=== PATIENT | female | born 1955 | race Hispanic/Latino ===

== ENCOUNTER 2021-02-28 20:27 | Inpatient (IN) | payer BC ==
[2021-02-28] MEDS ORDERED: Morphine 2 MG/ML VIAL SLOW IVP PRN (21:09)
[2021-02-28] MEDS ORDERED: Dextrose 5% in Water 1,000 ML IV PRN (21:09)
[2021-02-28] MEDS ORDERED: Ondansetron PF 4 MG/2 ML Vial IVP PRN (21:09)
[2021-02-28] MEDS ORDERED: hydrALAZINE 20 MG/ML VIAL SLOW IVP PRN (21:09)
[2021-02-28] MEDS ORDERED: Dextrose 50% Abboject 50 ML SYRINGE SLOW IVP PRN (21:09)
[2021-02-28] MEDS ORDERED: Promethazine HCl 25 MG/ML VIAL IM PRN (21:10)
[2021-02-28] MEDS ORDERED: Morphine 4 MG/ML VIAL SLOW IVP PRN (21:10)
[2021-02-28] MEDS ORDERED: Bisacodyl 10 MG SUPP PR PRN (21:10)
[2021-02-28] MEDS ORDERED: Ondansetron PF 4 MG/2 ML Vial IV PRN (21:10)
[2021-02-28] MEDS ORDERED: Fentanyl 100 MCG/2 ML VIAL SLOW IVP PRN (21:10)
[2021-02-28] MEDS ORDERED: Acetaminophen 325 MG TAB PO PRN (21:10)
[2021-02-28] MEDS ORDERED: HYDROcodone/Acetaminophen 5/325 mg Tablet PO PRN (21:10)
[2021-02-28] MEDS ORDERED: Cyclobenzaprine 10 MG TAB PO PRN (21:11)
[2021-02-28] MEDS ORDERED: traMADol HCl 50 MG TAB PO PRN (21:11)
[2021-02-28] MEDS ORDERED: SODIUM CHLORIDE 0.9% IVPB SCH (21:15)
[2021-02-28] MEDS ORDERED: GENTAMICIN IVPB SCH (21:15)
[2021-02-28] MEDS ORDERED: Communication Order-Pharmacy FS SCH (21:15)
[2021-02-28] MEDS ORDERED: Bacitracin Zinc Ointment 30 gm TUBE ONE (21:54)
[2021-02-28] MEDS ORDERED: Sodium Chloride 0.9% 30 ML ONE (21:54)
[2021-02-28] MEDS ORDERED: Bupivacaine 0.25% HCL 30 ML VIAL ONE (21:54)
[2021-02-28 21:59] LABS: #Basophils 0.1 thou/uL (0.0-0.2); #Lymphocytes 2.3 thou/uL (1.20-3.40); #Monocytes 0.9 thou/uL (0.11-0.59); #Neutrophils 6.3 thou/uL (1.40-6.50); %Basophils 0.9 % (0.0-1.0); %Eosinophils 0.4 % (0.0-10.0); %Lymphocytes 24.4 % (21.0-51.0); %Monocytes 8.9 % (0.0-10.0); %Neutrophils 65.5 % (42.0-75.0); Hemoglobin 13.1 g/dL (12.0-16.0); Mean Corpuscular HGB CONC 34.1 g/dL (32.0-36.0); Mean Corpuscular Hemoglobin 35.5 pg (27.0-31.0); Platelet Count 145 thou/uL (130-400); RBC Distribution Width 13.7 % (11.5-14.5); White Blood Cell (WBC) Count 9.5 thou/uL (4.8-10.8)
[2021-02-28 22:01] VITALS: BMI 24.3
[2021-02-28 22:18] LABS: SARS-CoV-2 NAA Rapid Test Not Detected (NotDetected)
[2021-02-28] MEDS ORDERED: Fentanyl 100 MCG/2 ML VIAL ONE (22:41)
[2021-02-28] MEDS ORDERED: Midazolam HCl 2 mg/2 ml Vial ONE (22:48)
[2021-02-28] MEDS ORDERED: Metoprolol Tartrate 5 MG/5 ML VIAL IVP SCH (23:45)
[2021-02-28] MEDS ORDERED: Sodium Chloride 0.9% 500 ML IV SCH (23:45)
[2021-02-28] MEDS ORDERED: Morphine 4 MG/ML VIAL ONE (23:49)
[2021-03-01] MEDS: Sodium Chloride 0.9% 1,000 ML IV SCH ×4 (01:07→16:57)
[2021-03-01] MEDS: Acetaminophen 325 MG TAB PO SCH ×5 (01:09→21:27)
[2021-03-01] MEDS: Ketorolac Tromethamine 30 MG/ML VIAL IVP SCH ×5 (01:10→21:12)
[2021-03-01 01:40] LABS: Lactic Acid 3.4 mmol/L (0.5-2.2)
[2021-03-01 01:43] LABS: ALT (SGPT) 21 U/L (8-55); AST (SGOT) 66 U/L (5-34); Albumin 2.7 g/dL (3.4-4.8); Alkaline Phosphatase 208 U/L (40-110); Anion Gap 14 mmol/L (10-20); BUN (Urea Nitrogen) 4 mg/dL (9.8-20.1); Bilirubin, Total 1.9 mg/dL (0.2-1.2); Calc. Creatinine Clearance 106 mL/min (70-130); Calcium 7.7 mg/dL (7.8-10.44); Carbon Dioxide 20 mmol/L (23-31); Chloride 108 mmol/L (98-107); Globulin 4.4 g/dL (2.4-3.5); Glucose 113 mg/dL (80-115); Potassium 3.6 mmol/L (3.5-5.1); Protein, Total 7.1 g/dL (5.8-8.1); Sodium 138 mmol/L (136-145)
[2021-03-01 01:47] LABS: Troponin I Less than 0.010 ng/mL (< 0.028)
[2021-03-01] MEDS ORDERED: Gentamicin Sulfate 80 MG in Premix Bag 1 BAG IVPB SCH (03:00)
[2021-03-01] MEDS ORDERED: Sodium Chloride 0.9% 500 ML IV SCH (04:15)
[2021-03-01 05:10] LABS: INR-International Normal Ratio 1.4; Prothrombin Time 16.8 sec (12.0-14.7)
[2021-03-01 05:11] LABS: PTT 38.5 sec (22.9-36.1)
[2021-03-01 05:26] LABS: #Basophils 0.1 thou/uL (0.0-0.2); #Eosinphils 0.1 thou/uL (0.0-0.7); #Lymphocytes 1.9 thou/uL (1.20-3.40); #Monocytes 0.9 thou/uL (0.11-0.59); #Neutrophils 6.7 thou/uL (1.40-6.50); %Basophils 0.5 % (0.0-1.0); %Eosinophils 0.8 % (0.0-10.0); %Lymphocytes 19.4 % (21.0-51.0); %Monocytes 9.4 % (0.0-10.0); %Neutrophils 69.8 % (42.0-75.0); Anion Gap 13 mmol/L (10-20); BUN (Urea Nitrogen) 4 mg/dL (9.8-20.1); Calc. Creatinine Clearance 111 mL/min (70-130); Calcium 7.6 mg/dL (7.8-10.44); Carbon Dioxide 21 mmol/L (23-31); Chloride 106 mmol/L (98-107); Glucose 116 mg/dL (80-115); Hemoglobin 12.7 g/dL (12.0-16.0); Mean Corpuscular HGB CONC 31.7 g/dL (32.0-36.0); Mean Corpuscular Hemoglobin 33.4 pg (27.0-31.0); Mean Platelet Volume 8.7 fL (7.4-10.4); Platelet Count 135 thou/uL (130-400); Potassium 3.5 mmol/L (3.5-5.1); RBC Distribution Width 13.8 % (11.5-14.5); Red Blood Cell (RBC) Count 3.79 mill/uL (4.20-5.40); Sodium 136 mmol/L (136-145); White Blood Cell (WBC) Count 9.6 thou/uL (4.8-10.8)
[2021-03-01] MEDS: Piperacillin/Tazobactam 4.5 GM in Sodium Chloride 0.9% 100 ML IVPB SCH ×3 (05:57→21:28)
[2021-03-01] MEDS ORDERED: Piperacillin/Tazobactam 4.5 GM in Sodium Chloride 0.9% 100 ML IVPB SCH (06:00)
[2021-03-01 06:33] LABS: Bilirubin Negative (Negative); Blood, Urine Negative (Negative); Clarity Clear (Clear); Glucose, Urine (Dipstick) Normal (Negative); Ketone, Urine Trace mg/dL (Negative); Leukocyte 500 Leu/uL (Negative); Nitrite Negative (Negative); Protein, Urine (Dipstick) Negative (Neg-Trace); RBC/HPF 0-3 HPF (0-3); Specific Gravity, Urine 1.018 (1.002-1.036); Squamous Epithelial 0-3 HPF (0-3); Urobilinogen Normal mg/dL (Less than 2); WBC/HPF Greater than 50 HPF (0-3); pH, Urine 6.5 (5.0-9.0)
[2021-03-01 06:37] LABS: Bacteria/HPF 1+ HPF (None Seen)
[2021-03-01 06:38] LABS: Urine Culture Reflex Yes Yes
[2021-03-01] MEDS ORDERED: Senokot S 8.6-50 MG TAB PO PRN (08:09)
[2021-03-01] MEDS ORDERED: Cepastat Lozenges 1 LOZ PO PRN (08:09)
[2021-03-01] MEDS ORDERED: Sodium Chloride 0.65% Nasal 44 ML BOT EA NARE PRN (08:09)
[2021-03-01] MEDS ORDERED: Ondansetron ODT 4 MG TAB PO PRN (08:09)
[2021-03-01] MEDS ORDERED: Bisacodyl 5 MG TAB PO PRN (08:09)
[2021-03-01] MEDS ORDERED: Calcium Carbonate 500 MG ChewTAB PO PRN (08:09)
[2021-03-01] MEDS ORDERED: Loratadine 10 MG TAB PO PRN (08:09)
[2021-03-01] MEDS ORDERED: GUAIFENESIN SF SOLN 200 MG/10 ML UDCUP PO PRN (08:09)
[2021-03-01] MEDS ORDERED: Ondansetron PF 4 MG/2 ML Vial IVP PRN (08:09)
[2021-03-01] MEDS ORDERED: Zolpidem Tartrate 5 MG TAB PO PRN (08:09)
[2021-03-01] MEDS ORDERED: Loperamide HCl 2 MG CAP PO PRN (08:09)
[2021-03-01 08:39] LABS: Phosphorus 2.9 mg/dL (2.3-4.7)
[2021-03-01] MEDS ORDERED: TETANUS AND DIPHTHERIA TOX/PF 0.5 ML DISP.SYRIN IM SCH (09:00)
[2021-03-01] MEDS ORDERED: Famotidine 20 MG TAB PO SCH (09:00)
[2021-03-01] MEDS ORDERED: Polyethylene Glycol 3350 17 GM Packet PO SCH (09:00)
[2021-03-01] MEDS ORDERED: Sodium Chloride 0.9% 10 ML ONE (11:43)
[2021-03-01] MEDS ORDERED: Bacitracin Zinc Ointment 30 gm TUBE ONE (11:43)
[2021-03-01] MEDS ORDERED: Bupivacaine PF 0.5% 30 ML VIAL ONE (11:43)
[2021-03-01] MEDS ORDERED: Fentanyl 100 MCG/2 ML VIAL ONE ×2 (11:54→14:31)
[2021-03-01] MEDS ORDERED: Ropivacaine 0.5% HCl/PF (150 MG/30 ML VIAL) ONE (12:15)
[2021-03-01] MEDS: Gabapentin 300 MG CAP PO SCH ×3 (12:46→21:26)
[2021-03-01] MEDS: Aspirin 81 mg Enteric Coated Tablet PO SCH ×2 (12:46→21:26)
[2021-03-01] MEDS ORDERED: Esmolol 100 MG/10 ML VIAL ONE (13:03)
[2021-03-01] MEDS ORDERED: Ketorolac Tromethamine 30 MG/ML VIAL ONE (13:03)
[2021-03-01] MEDS ORDERED: Labetalol HCl 100 MG/20 ML VIAL ONE (13:03)
[2021-03-01] MEDS ORDERED: Sodium Chloride 0.9% 30 ML ONE (13:07)
[2021-03-01] MEDS ORDERED: Multivitamins, Adult 10 ML, Thiamine HCl 100 MG, Folic Acid 1 MG in Dextrose 5 %-0.45 %... IV SCH (15:45)
[2021-03-01] MEDS ORDERED: Ondansetron HCl/PF 4 MG/2 ML Vial IVP PRN (16:21)
[2021-03-01] MEDS ORDERED: Promethazine HCl 25 MG/ML VIAL IM PRN (16:21)
[2021-03-01] MEDS ORDERED: Promethazine HCl 25 MG/ML VIAL IVPB PRN (16:21)
[2021-03-01] MEDS ORDERED: Clindamycin/D5W 600 MG in Premix Bag 1 BAG IVPB SCH (18:45)
[2021-03-01] MEDS: Metoprolol Tartrate 25 MG TAB PO SCH (21:26)
[2021-03-01] MEDS ORDERED: Ibuprofen 600 MG TAB PO PRN (22:00)
[2021-03-02] MEDS: Sodium Chloride 0.9% 1,000 ML IV SCH ×2 (01:41→11:50)
[2021-03-02] MEDS: Clindamycin/D5W 600 MG in Premix Bag 1 BAG IVPB SCH ×2 (02:17→11:12)
[2021-03-02] MEDS ORDERED: Ibuprofen 600 MG TAB PO PRN (04:00)
[2021-03-02] MEDS: Piperacillin/Tazobactam 4.5 GM in Sodium Chloride 0.9% 100 ML IVPB SCH ×3 (05:21→21:25)
[2021-03-02] MEDS: Acetaminophen 325 MG TAB PO SCH ×4 (05:25→23:18)
[2021-03-02 05:39] LABS: #Eosinphils 0.4 thou/uL (0.0-0.7); #Lymphocytes 1.6 thou/uL (1.20-3.40); #Monocytes 0.6 thou/uL (0.11-0.59); #Neutrophils 4.2 thou/uL (1.40-6.50); %Basophils 0.6 % (0.0-1.0); %Eosinophils 5.8 % (0.0-10.0); %Lymphocytes 23.2 % (21.0-51.0); %Monocytes 8.8 % (0.0-10.0); %Neutrophils 61.7 % (42.0-75.0); Hemoglobin 11.2 g/dL (12.0-16.0); Mean Corpuscular HGB CONC 32.2 g/dL (32.0-36.0); Mean Corpuscular Hemoglobin 34.3 pg (27.0-31.0); Mean Platelet Volume 8.6 fL (7.4-10.4); Platelet Count 111 thou/uL (130-400); RBC Distribution Width 13.8 % (11.5-14.5); Red Blood Cell (RBC) Count 3.26 mill/uL (4.20-5.40); White Blood Cell (WBC) Count 6.7 thou/uL (4.8-10.8)
[2021-03-02 05:40] LABS: Platelet Morphology Comment Appears Decreased
[2021-03-02 05:46] LABS: ALT (SGPT) 17 U/L (8-55); AST (SGOT) 54 U/L (5-34); Albumin 2.2 g/dL (3.4-4.8); Alkaline Phosphatase 181 U/L (40-110); Anion Gap 9 mmol/L (10-20); BUN (Urea Nitrogen) 8 mg/dL (9.8-20.1); Bilirubin, Total 2.1 mg/dL (0.2-1.2); Calc. Creatinine Clearance 102 mL/min (70-130); Calcium 7.3 mg/dL (7.8-10.44); Carbon Dioxide 23 mmol/L (23-31); Chloride 108 mmol/L (98-107); Globulin 3.8 g/dL (2.4-3.5); Glucose 94 mg/dL (80-115); Magnesium 1.9 mg/dL (1.6-2.6); Phosphorus 3.2 mg/dL (2.3-4.7); Potassium 3.4 mmol/L (3.5-5.1); Sodium 137 mmol/L (136-145)
[2021-03-02 05:58] LABS: HBSAg Index 0.35 S/CO (0-0.99); Hep A IgM AB Non-Reactive (NonReactive); Hep A IgM S/CO 0.33 S/CO (0-0.79); Hep B Surf Ag Non-Reactive S/CO (NonReactive); Hep C IgG Ab Non-Reactive (NonReactive); Hep C Index 0.51 S/CO (0-0.79); Hepatitis B Core IgM Abs Non-Reactive (NonReactive)
[2021-03-02] MEDS: traMADol HCl 50 MG TAB PO PRN (08:39)
[2021-03-02] MEDS: Aspirin 81 mg Enteric Coated Tablet PO SCH ×2 (08:40→20:47)
[2021-03-02] MEDS: Gabapentin 300 MG CAP PO SCH ×3 (08:40→20:47)
[2021-03-02] MEDS: Metoprolol Tartrate 25 MG TAB PO SCH ×2 (08:40→20:47)
[2021-03-02] MEDS: Folic Acid 1 MG TAB PO SCH (13:32)
[2021-03-02] MEDS: Thiamine 100 MG TAB PO SCH (13:32)
[2021-03-02] MEDS: Multivit, Therapeutic 1 TAB PO SCH (13:32)
[2021-03-03] MEDS: Piperacillin/Tazobactam 4.5 GM in Sodium Chloride 0.9% 100 ML IVPB SCH (04:55)
[2021-03-03] MEDS: Sodium Chloride 0.9% 1,000 ML IV SCH (04:58)
[2021-03-03] MEDS: Acetaminophen 325 MG TAB PO SCH ×2 (04:59→11:15)
[2021-03-03 06:07] LABS: Iron 87 ug/dL (50-170); Iron Binding Capacity, Total 195 mcg/dL (265-497); Lipase 15 U/L (8-78); Magnesium 1.9 mg/dL (1.6-2.6)
[2021-03-03] MEDS: Gabapentin 300 MG CAP PO SCH (08:14)
[2021-03-03] MEDS: Metoprolol Tartrate 25 MG TAB PO SCH (08:15)
[2021-03-03] MEDS: Multivit, Therapeutic 1 TAB PO SCH (08:15)
[2021-03-03] MEDS: Folic Acid 1 MG TAB PO SCH (08:15)
[2021-03-03] MEDS: Thiamine 100 MG TAB PO SCH (08:15)
[2021-03-03] MEDS: Aspirin 81 mg Enteric Coated Tablet PO SCH (08:15)
[2021-03-03] MEDS: traMADol HCl 50 MG TAB PO PRN (08:17)
[2021-03-03 11:15] VITALS: BP 117/58; TEMP 98.1
[2021-03-05 14:05] LABS: ANA Symphony (Qualitative) Negative (Negative); ANA Symphony (Quantitative) 0.3 Ratio (< 0.7 Negative); EliA Vaculitis New Method **** NEW METHOD ****; Mitochondrial Ab 2.2 U/mL (<4 Negative); dsDNA IgG Antibody 0.9 IU/mL (<10 Negative)
[2021-03-05 14:40] LABS: Smooth Muscle Total ABS 14 Units (0-19)
[2021-03-06 14:38] LABS: Alpha-1-Antitrypsin 139 mg/dL (101-187)
== END 2021-03-03 12:12 | disposition home or self-care (01) | DRG 513 ==
LOC: SURG A 20:54 → 2NO 03-01 00:47
PROVIDERS: ADMIT Surgery; ATTEND Surgery
PROC: 0PSV04Z Reposition Left Finger Phalanx with Internal Fixation Device, Open Approach (ICD-10-PCS; principal; 2021-03-01)
PROC: 0PSV04Z Reposition Left Finger Phalanx with Internal Fixation Device, Open Approach (ICD-10-PCS; 2021-03-01)
PROC: 3E0T3BZ Introduction of Anesthetic Agent into Peripheral Nerves and Plexi, Percutaneous Approach (ICD-10-PCS; 2021-03-01)
DX: S62.623B Displaced fracture of middle phalanx of left middle finger, initial encounter for open fracture (principal); N39.0 Urinary tract infection, site not specified; E87.2 Acidosis; I47.1 Supraventricular tachycardia; S62.611B Displaced fracture of proximal phalanx of left index finger, initial encounter for open fracture; Z20.822 Contact with and (suspected) exposure to COVID-19; D75.89 Other specified diseases of blood and blood-forming organs; R94.5 Abnormal results of liver function studies; K70.9 Alcoholic liver disease, unspecified; E86.0 Dehydration; F10.11 Alcohol abuse, in remission; W22.8XXA Striking against or struck by other objects, initial encounter
CPT/HCPCS: 36415; 71045; 76000; 76705; 80048; 80053; 80074; 81001; 82103; 82104; 82105; 82607; 82728; 82746; 83516; 83540; 83550; 83605; 83690; 83735; 83880; 84100; 84484; 85025; 85610; 85730; 86038; 86225; 87040; 87086; 93005; 93010; 93306; C1713; J1580; J1885; J2250; J2270; J2543; J2795; J3010; J3411; J3490; J7042; S0020; U0002; U0005